=== PATIENT | female | born 1975 | race Caucasian/White ===

== ENCOUNTER 2016-11-11 13:22 | Emergency (ER) | payer OTHER, BC ==
[~2016-11-11 13:22] MED LIST: CLAR10CA3 PO; IBUP200C PO; LEVO200T4 PO; MONT10TA2 PO; PERCOCET PO; [UNRECOGNIZED DRUG - OTHER] OR; ventolin inhaler INH
--- NOTE | 2016-11-11 15:26 | REP ---
CT CERVICAL SPINE WITHOUT CONTRAST: HISTORY: Trauma. There is no acute fracture or subluxation. A disc bulge with associated osteophyte formation is present at the C3-4 level. Disc bulges are present at the C4-5 and C5-6 levels. There is minimal narrowing of the spinal canal. Uncinate process hypertrophy is present at the C3-4 and C5-6 levels. This produces minimal to mild narrowing of the neural foramina. The C3-4 intervertebral disc is decreased in height consistent with disc degeneration. There is loss of the normal lordotic curve. IMPRESSION: 1. There is no acute fracture or subluxation. 2. There is cervical spondylosis at the C3-4 through C5-6 levels. Signed by Cholo Brewer MD 11/11/2016 03:30 P
--- NOTE | 2016-11-11 15:49 | REP ---
CT THORACIC SPINE WITHOUT CONTRAST: HISTORY: Trauma. There is no acute fracture or subluxation. There is no disc bulge or herniation. The spinal canal and the neural foramina are patent. There is loss of height of several mid and lower thoracic intervertebral discs. Vacuum phenomenon is present. These findings are consistent with disc degeneration. Anterior osteophytes are present throughout the thoracic spine. IMPRESSION: There is no acute fracture or subluxation. Signed by Cholo Brewer MD 11/11/2016 03:54 P
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
--- NOTE | 2016-11-11 16:10 | REP ---
CT LUMBAR SPINE WP CONTRAST: HISTORY: Trauma. There is no disc bulge or herniation at the L1-2 and L2-3 levels. The nerves exit the neural foramina without compression. A diffuse disc bulge is present at the L3-4 level. There is minimal compression of the thecal sac. The L3 nerves exit the neural foramina without compression. A diffuse disc bulge is present at the L4-5 level. There is minimal compression of the thecal sac. There is hypertrophy of the posterior articulating facets. The L4 nerves exit the neural foramina without compression. A diffuse disc bulge is present at the L5-S1 level. There is minimal compression of the thecal sac. There is hypertrophy of the posterior articulating facets. The L5 nerves exit the neural foramina without compression. The L3-4 intervertebral disc is decreased in height consistent with disc degeneration. There is no acute fracture or subluxation. IMPRESSION: 1. Diffuse disc bulges at the L3-4 through L5-S1 levels with minimal thecal sac compression. 2. There is no acute fracture or subluxation. Signed by Cholo Brewer MD 11/11/2016 04:17 P
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
== END 2016-11-11 15:56 | disposition home or self-care (01) ==
LOC: M ED 13:22
DX: S13.9XXA Sprain of joints and ligaments of unspecified parts of neck, initial encounter (principal); S23.9XXA Sprain of unspecified parts of thorax, initial encounter; S33.9XXA Sprain of unspecified parts of lumbar spine and pelvis, initial encounter; V49.40XA Driver injured in collision with unspecified motor vehicles in traffic accident, initial encounter; Y92.410 Unspecified street and highway as the place of occurrence of the external cause; Y93.89 Activity, other specified; Y99.8 Other external cause status; J45.909 Unspecified asthma, uncomplicated; F32.9 Major depressive disorder, single episode, unspecified; Z87.891 Personal history of nicotine dependence; Z79.899 Other long term (current) drug therapy; Z88.0 Allergy status to penicillin; Z88.7 Allergy status to serum and vaccine

== ENCOUNTER → 2017-07-29 | Outpatient (CLI) | payer BC ==
[~2017-07-29] MED LIST changes: -IBUP200C PO; +IBUP200C10 PO
[2017-07-29 18:17] LABS: MEAN CORPUSCULAR HEMOGLOBIN 30.5 pg (27.0-33.0); MEAN CORPUSCULAR HGB CONC 33.5 g/dl (32.0-36.5); MEAN CORPUSCULAR VOLUME 91.2 fl (80.0-96.0); PLATELET COUNT, AUTOMATED 348 10^3/uL (150-450); RED CELL DISTRIBUTION WIDTH 13.3 % (11.5-14.5); WHITE BLOOD COUNT 10.8 10^3/uL (4.0-10.0)
[2017-07-29 19:09] LABS: ALBUMIN 3.9 GM/DL (3.2-5.2); ALBUMIN/GLOBULIN RATIO 1.18 (1.00-1.93); ALKALINE PHOSPHATASE 59 U/L (45-117); ALT/SGPT 20 U/L (12-78); ANION GAP 8 MEQ/L (8-16); AST/SGOT 11 U/L (15-37); BILIRUBIN,TOTAL 0.3 MG/DL (0.2-1.0); BLOOD UREA NITROGEN 15 MG/DL (7-18); CALCIUM LEVEL 8.8 MG/DL (8.5-10.1); CARBON DIOXIDE LEVEL 25 MEQ/L (21-32); CHLORIDE LEVEL 106 MEQ/L (98-107); CREATININE FOR GFR 0.72 MG/DL (0.55-1.02); GLOMERULAR FILTRATION RATE > 60.0 (>58); GLUCOSE, FASTING 74 MG/DL (70-105); POTASSIUM SERUM 4.2 MEQ/L (3.5-5.1); SODIUM LEVEL 139 MEQ/L (136-145); TOTAL PROTEIN 7.2 GM/DL (6.4-8.2)
[2017-07-29 19:31] LABS: THYROID PEROXIDASE ANTIBODY 109.8 U/ML (<60.0)
[2017-07-29 19:36] LABS: ERYTHROCYTE SEDIMENTATION RATE 3 mm/hr (0-20)
[2017-08-04 00:07] LABS: IGE RECEPTOR ABY 1 2.1 (<10); SJOGREN'S ANTI SS-A <0.2 AI (0.0-0.9); SJOGREN'S ANTI SS-B <0.2 AI (0.0-0.9)
== END ==
LOC: M SMT 15:13
PROVIDERS: ATTEND Allergy & Immunology Allergy
DX: L50.1 Idiopathic urticaria (principal); L50.3 Dermatographic urticaria